=== PATIENT | female | born 1930 | race Caucasian/White ===

== ENCOUNTER 2016-09-30 13:38 | Emergency (ER) | payer MEDICARE, OTHER ==
[~2016-09-30 13:38] MED LIST: ADULT LOW DOSE81 MG PO; AMLODIPINE-BEN1 EAC5 PO; AMLODIPINE/BENAZ PO; CALCIUM PO; EPA-DHA SOFTGEL1 CAP PO; GABAPENTIN PO; GABAPENTIN300 MG PO; ICAPS TABLET1 TAB.S PO; METFORMIN HCL500 MG PO; METFORMIN PO; MULTIVITAMIN1 TAB PO; VESICARE PO; VESICARE10 MG PO
[2016-09-30] MEDS ORDERED: BENAZEPRIL HCL20 M2 (15:03)
[2016-09-30] MEDS ORDERED: OXYBUTYNIN CHLOR5 M2 PO (15:04)
[2016-09-30] MEDS ORDERED: METOPROLOL SUCC50 M1 PO (15:04)
[2016-09-30] MEDS ORDERED: SYNTHROID50 MC1 PO (15:05)
[2016-09-30] MEDS ORDERED: PRAVASTATIN SOD40 M1 PO (15:05)
[2016-09-30] MEDS ORDERED: JANUVIA50 M1 PO (15:05)
[2016-09-30] MEDS ORDERED: ARICEPT10 M2 PO (15:05)
[2016-09-30] MEDS ORDERED: PROLIA60 MG/1 M1 (15:06)
[2016-09-30] MEDS ORDERED: ROCALTROL0.25 MC1 PO (15:06)
== END 2016-09-30 16:09 ==
LOC: EDMED 13:38
PROC: 2W3EX1Z Immobilization of Right Hand using Splint (ICD-10-PCS; principal; 2016-09-30)
DX: S09.90XA Unspecified injury of head, initial encounter (principal); S62.336A Displaced fracture of neck of fifth metacarpal bone, right hand, initial encounter for closed fracture; S13.4XXA Sprain of ligaments of cervical spine, initial encounter; S80.01XA Contusion of right knee, initial encounter; E11.9 Type 2 diabetes mellitus without complications; I10 Essential (primary) hypertension; Z88.5 Allergy status to narcotic agent; Z79.82 Long term (current) use of aspirin; Z79.890 Hormone replacement therapy; Z79.899 Other long term (current) drug therapy; W18.30XA Fall on same level, unspecified, initial encounter; Y92.129 Unspecified place in nursing home as the place of occurrence of the external cause